=== PATIENT | male | born 1975 | race African-American/Black ===

== ENCOUNTER 2016-09-04 12:05 | Emergency (ER) | payer OTHER ==
[~2016-09-04] VITALS: Ht 182.9 cm; Wt 79.4 kg
[2016-09-04 12:40] VITALS: BP 180/106
[2016-09-04] MEDS ORDERED: AMLODIPINE BESYL5 MG ORAL (12:41)
[2016-09-04] MEDS ORDERED: ATORVASTATIN CA10 MG ORAL (12:41)
[2016-09-04] MEDS ORDERED: DIOVAN80 MG ORAL (12:41)
[2016-09-04 12:45] VITALS: BP 180/106
--- NOTE | 2016-09-04 12:48 | Emergency Room Report ---
History of Present Illness General Chief Complaint: Medication Refill Source: Patient Present Illness HPI The patient is a 40-year-old male with history of hypertension and hypercholesterolemia presenting for medication refill. The patient states he has been out of his anti hypertensive medications and cholesterol medication for 2 weeks. The patient states he recently changed doctors and is waiting for a next appointment. The patient denies any symptoms including nausea, vomiting , fever, chills, headache, dizziness, blurred vision, weakness, palpitations, chest pain, shortness of breath Allergies: Coded Allergies: No Known Allergies (Verified Allergy, Mild, 07/12/07) Patient History Past Medical History: see triage record Pertinent Family History: none Reviewed Nursing Documentation: PMH: Agreed, PSxH: Agreed Nursing Documentation-PMH Hx Hypertension: Yes - high cholesterol Review of Systems All Other Systems: negative except mentioned in HPI Physical Exam Vital Signs Date Time Temp Pulse Resp B/P Pulse Ox O2 Delivery O2 Flow Rate FiO2 09/04/16 12:27 97.9 82 16 180/106 98 Room Air Sp02 EP Interpretation: reviewed, normal General Appearance: no apparent distress, alert, GCS 15, non-toxic Head: normocephalic, atraumatic Eyes: bilateral eye PERRL, bilateral eye normal inspection ENT: hearing grossly normal, normal pharynx, no angioedema, normal voice Neck: full range of motion, supple/symm/no masses Respiratory: chest non-tender, lungs clear, normal breath sounds, no wheezing, speaking full sentences Cardiovascular #1: regular rate, rhythm, no edema, no murmur, no rub Musculoskeletal: back normal, gait/station normal, normal range of motion, non- tender Neurologic: alert, oriented x3, responsive, motor strength/tone normal, sensory intact, normal gait, speech normal Psychiatric: judgement/insight normal, memory normal, mood/affect normal, no suicidal/homicidal ideation Skin: normal color, no rash, warm/dry, well hydrated Lymphatic: no adenopathy Medical Decision Making PA Attestation Dr. Castro is my supervising physician. Patient management was discussed with my supervising physician Diagnostic Impression: Primary Impression: Hypertension Additional Impression: Encounter for medication refill ER Course The patient is a 40-year-old male with history of hypertension and hypercholesterolemia presenting for medication refill. DDx: HTN, hypercholesterolemia PE: Pt is hypertensive No apparent distress. A&Ox4 PERRL. EOMI. Normal mentation. RRR. No MRG Lungs CTA bilat Skin is warm and dry, no rashes. The pt is given refill of these medications and will FU with PMD ADIN. ER precautions given Last Vital Signs Date Time Temp Pulse Resp B/P Pulse Ox O2 Delivery O2 Flow Rate FiO2 09/04/16 12:27 97.9 82 16 180/106 98 Room Air Status: improved Disposition: HOME, SELF-CARE Condition: Improved Scripts Amlodipine Besylate* (AMLODIPINE BESYLATE*) 5 Mg Tablet 5 MG ORAL DAILY, #30 TAB Prov: RAMEZ BEYER.A. 09/04/16 Valsartan (DIOVAN) 80 Mg Tab 80 MG ORAL DAILY, #30 TAB Prov: RAMEZ BEYER P.A. 09/04/16 Atorvastatin Calcium* (LIPITOR*) 10 Mg Tablet 10 MG ORAL BEDTIME, #30 TAB Prov: RAMEZ BEYER P.A. 09/04/16 Patient Instructions: Medicine Refill at the Emergency Department, Hypertension Additional Instructions: I discussed my findings with the patient. All questions and concerns have been answered. Treatment and medication compliance have been addressed. I advised the patient that they need to follow up with PMD in 3-5 days. Return to ED if symptoms worsen, new symptoms arise, or if needed for any reason. Patient verbalized understanding of discharge instructions. RAMEZ BEYER Sep 04, 2016 12:48
== END 2016-09-04 12:45 | disposition home or self-care (01) ==
LOC: EMR 12:30
DX: I10 Essential (primary) hypertension (principal); Z76.0 Encounter for issue of repeat prescription; E78.00 Pure hypercholesterolemia, unspecified
CPT/HCPCS: 99284

== ENCOUNTER 2017-01-04 23:31 | Inpatient (IN) | payer OTHER ==
[~2017-01-04] VITALS: Ht 175.3 cm; Wt 83.9 kg
[~2017-01-04 23:31] MED LIST: AMLODIPINE BESYL5 MG ORAL; ATORVASTATIN CA10 MG ORAL; DIOVAN80 MG ORAL
[2017-01-05] VITALS (12 sets, daily range): BP systolic 121–206; BP diastolic 72–119
[2017-01-05 00:16] LABS: BASOPHILS % (AUTO) 0.7 % (0.0-2.0); EOSINOPHILS % (AUTO) 1.6 % (0.0-3.0); LYMPHOCYTES % (AUTO) 28.9 % (20.0-45.0); MEAN CORPUSCULAR HEMOGLOBIN 33.2 PG (27.0-31.0); MEAN CORPUSCULAR HGB CONC 34.4 G/DL (32.0-36.0); MEAN CORPUSCULAR VOLUME 97 FL (80-99); MEAN PLATELET VOLUME 11.4 FL (6.5-10.1); MONOCYTES % (AUTO) 7.2 % (1.0-10.0); NEUTROPHILS % (AUTO) 61.6 % (45.0-75.0); PLATELET COUNT 184 K/UL (150-450); RED BLOOD COUNT 4.97 M/UL (4.70-6.10); RED CELL DISTRIBUTION WIDTH 11.5 % (11.6-14.8); WHITE BLOOD COUNT 6.3 K/UL (4.8-10.8)
[2017-01-05 00:23] LABS: PROTHROMBIN TIME 10.7 SEC (9.30-11.50)
--- NOTE | 2017-01-05 00:23 | Emergency Room Report ---
History of Present Illness General Chief Complaint: Generalized Weakness Source: Patient Present Illness HPI Is a 41-year-old male with a history of hyperlipidemia and hypertension. He presents with chief complaint of generalized weakness and headache. Onset was about 2 hours ago. He has stopped his blood pressure medication about to 3 days ago because he wanted to go natural. He has some headache. Tonight, about 2 hours ago he went to the bathroom and noticed acute onset of severe headache and left-sided weakness. Said he had hard time walking. His friend has to support him. Has some slurred speech. Speech is improving. No fever or chills. No nausea no vomiting. No focal deficit. Allergies: Coded Allergies: No Known Allergies (Verified Allergy, Mild, 07/12/07) Patient History Past Medical History: see triage record, old chart reviewed, HTN Past Surgical History: other Pertinent Family History: none Social History: Denies: smoking Immunizations: other Reviewed Nursing Documentation: PMH: Agreed, PSxH: Agreed Nursing Documentation-PMH Hx Hypertension: Yes - high cholesterol Review of Systems Eye: Denies: blurred vision, eye pain ENT: Denies: ear pain, nose congestion, throat swelling Respiratory: Denies: cough, shortness of breath Cardiovascular: Denies: chest pain, palpitations Gastrointestinal: Denies: abdominal pain, diarrhea, nausea, vomiting Musculoskeletal: Denies: back pain, joint pain Skin: Denies: rash Neurological: Reports: focal weakness, headache, Denies: numbness Endocrine: Denies: increased thirst, increased urine Hematologic/Lymphatic: Denies: easy bruising All Other Systems: negative except mentioned in HPI Physical Exam Vital Signs Date Time Temp Pulse Resp B/P Pulse Ox O2 Delivery O2 Flow Rate FiO2 01/04/17 23:42 97.9 72 16 187/115 98 Room Air vitals with hypertension Sp02 EP Interpretation: reviewed, normal General Appearance: well appearing, no apparent distress, alert Head: normocephalic, atraumatic Eyes: bilateral eye EOMI, bilateral eye PERRL ENT: hearing grossly normal, normal pharynx Neck: full range of motion, supple, no meningismus Respiratory: chest non-tender, lungs clear, normal breath sounds Cardiovascular #1: regular rate, rhythm, no murmur Gastrointestinal: normal bowel sounds, non tender, no mass, no organomegaly, no bruit, non-distended Musculoskeletal: back normal, normal range of motion Neurologic: alert, oriented x3, other - Mild dysarthria. No facial droop. Minimal weakness to the left upper extremity compared to the right. Mild dysmetria of the left hand Psychiatric: mood/affect normal Skin: warm/dry Medical Decision Making Diagnostic Impression: Primary Impression: Hypertension Qualified Codes: I10 - Essential (primary) hypertension Additional Impression: TIA (transient ischemic attack) Qualified Codes: G45.9 - Transient cerebral ischemic attack, unspecified ER Course Patient presents with symptom concerning for TIA/CVA. Probably had a small lacunar infarct. Symptom improved now. Blood pressure improved. Speech is clear. Deficit almost resolved. Patient received aspirin and blood pressure medication here. I discussed the case with Dr. Anderson who accepted the patient for transfer. Patient was initially to be transferred to [facility]. His insurance company was unable to transfer the patient out within the two-hour period. Patient will be admitted here in the service Dr. Rivera. Laboratory Tests Test 01/04/17 23:59 01/05/17 00:22 White Blood Count 6.3 K/UL (4.8-10.8) Red Blood Count 4.97 M/UL (4.70-6.10) Hemoglobin 16.5 G/DL (14.2-18.0) Hematocrit 48.1 % (42.0-52.0) Mean Corpuscular Volume 97 FL (80-99) Mean Corpuscular Hemoglobin 33.2 PG (27.0-31.0) H Mean Corpuscular Hemoglobin Concent 34.4 G/DL (32.0-36.0) Red Cell Distribution Width 11.5 % (11.6-14.8) L Platelet Count 184 K/UL (150-450) Mean Platelet Volume 11.4 FL (6.5-10.1) H Neutrophils (%) (Auto) 61.6 % (45.0-75.0) Lymphocytes (%) (Auto) 28.9 % (20.0-45.0) Monocytes (%) (Auto) 7.2 % (1.0-10.0) Eosinophils (%) (Auto) 1.6 % (0.0-3.0) Basophils (%) (Auto) 0.7 % (0.0-2.0) Prothrombin Time 10.7 SEC (9.30-11.50) Prothromb Time International Ratio 1.0 (0.9-1.1) Activated Partial Thromboplast Time 29 SEC (23-33) Sodium Level 139 mEQ/L (135-145) Potassium Level 3.5 mEQ/L (3.4-4.9) Chloride Level 102 mEQ/L (98-107) Carbon Dioxide Level 25 mEQ/L (20-30) Anion Gap 12 (5-15) Blood Urea Nitrogen 15 mg/dL (7-23) Creatinine 1.0 mg/dL (0.7-1.2) Estimat Glomerular Filtration Rate > 60 mL/min (>60) Glucose Level 124 mg/dL (74-106) H Calcium Level 9.5 mg/dL (8.6-10.2) Total Bilirubin 0.4 mg/dL (0.0-1.2) Aspartate Amino Transf (AST/SGOT) 23 U/L (5-40) Alanine Aminotransferase (ALT/SGPT) 28 U/L (3-41) Alkaline Phosphatase 109 U/L (40-129) Troponin I < 0.30 ng/mL (<=0.30) Total Protein 8.0 g/dL (6.6-8.7) Albumin 4.8 g/dL (3.5-5.2) Globulin 3.2 g/dL Albumin/Globulin Ratio 1.5 (1.0-2.7) Triglycerides Level 110 mg/dL (< 150) Cholesterol Level 174 mg/dL (< 200) LDL Cholesterol 109 mg/dL (60-99) H HDL Cholesterol 43 mg/dL (> 60) Cholesterol/HDL Ratio 4.0 (3.3-4.4) Urine Color Yellow Urine Appearance Clear Urine pH 8 (4.5-8.0) Urine Specific [place] 1.010 (1.005-1.035) Urine Protein Negative (NEGATIVE) Urine Glucose (UA) Negative (NEGATIVE) Urine Ketones Negative (NEGATIVE) Urine Occult Blood Negative (NEGATIVE) Urine Nitrite Negative (NEGATIVE) Urine Bilirubin Negative (NEGATIVE) Urine Urobilinogen Normal MG/DL (0.0-1.0) Urine Leukocyte Esterase Negative (NEGATIVE) Urine Opiates Screen Negative (NEGATIVE) Urine Barbiturates Screen Negative (NEGATIVE) Phencyclidine (PCP) Screen Negative (NEGATIVE) Urine Amphetamines Screen Negative (NEGATIVE) Urine Benzodiazepines Screen Negative (NEGATIVE) Urine Cocaine Screen Negative (NEGATIVE) Urine Marijuana (THC) Screen Positive (NEGATIVE) H Lab Results Impression labs unremarkable EKG Diagnostic Results EKG Time: 00:22 Rate: normal Rhythm: NSR ST Segments: no acute changes Rhythm Strip Diag. Results Rhythm Strip Time: 00:22 EP Interpretation: yes Rate: 75 Rhythm: NSR, no PVC's, no ectopy Chest X-Ray Diagnostic Results Chest X-Ray Diagnostic Results : Chest X-Ray Ordered: Yes # of Views/Limited/Complete: 1 View Indication: Chest Pain EP Interpretation: Yes Interpretation: no consolidation, no effusion, no pneumothorax, no acute cardiopulmonary disease Impression: No acute disease CT/MRI/US Diagnostic Results CT/MRI/US Diagnostic Results : Imaging Test Ordered: CT head Impression read by radiologist. Negative. Last Vital Signs Date Time Temp Pulse Resp B/P Pulse Ox O2 Delivery O2 Flow Rate FiO2 01/05/17 00:06 97.9 76 16 206/119 98 Room Air Status: improved Disposition: ADMITTED INPATIENT Condition: Serious SHERRI VALENCIA M.D. Jan 05, 2017 00:23
[2017-01-05 00:32] LABS: ALANINE AMINOTRANSFERASE 28 U/L (3-41); ALBUMIN/GLOBULIN RATIO 1.5 (1.0-2.7); ANION GAP 12 (5-15); ASPARTATE AMINO TRANSFERASE 23 U/L (5-40); CALCIUM 9.5 mg/dL (8.6-10.2); CARBON DIOXIDE 25 mEQ/L (20-30); CHLORIDE 102 mEQ/L (98-107); CHOLESTEROL 174 mg/dL (< 200); GLOMERULAR FILTRATION RATE > 60 mL/min (>60); HEMOLYSIS 10; LDL CHOLESTEROL (CALC.) 109 mg/dL (60-99); POTASSIUM 3.5 mEQ/L (3.4-4.9); SODIUM 139 mEQ/L (135-145)
[2017-01-05 00:33] LABS: TROPONIN I < 0.30 ng/mL (<=0.30)
[2017-01-05 00:49] LABS: APPEARANCE,URINE CLEAR; KETONES,URINE NEGATIVE (NEGATIVE); LEUKOCYTE ESTERASE ,URINE NEGATIVE (NEGATIVE); NITRITE,URINE NEGATIVE (NEGATIVE); PH,URINE 8 (4.5-8.0); PROTEIN,URINE NEGATIVE (NEGATIVE); UROBILINOGEN,URINE NORMAL MG/DL (0.0-1.0)
[2017-01-05] MEDS ORDERED: Nitroglycerin Subl 0.4mg tab (Bottle Of 25) SL PRN (07:00)
[2017-01-05] MEDS ORDERED: Mylanta II UD 30ml ORAL PRN (07:00)
[2017-01-05] MEDS ORDERED: DuoNeb 0.5-3(2.5)mg/3ml neb HHN PRN (07:00)
[2017-01-05] MEDS ORDERED: Morphine Sulfate 2mg/ml Inj IVP PRN (07:00)
[2017-01-05] MEDS ORDERED: LORazepam Inj 2mg/ml 1ml IV PRN (07:00)
[2017-01-05] MEDS ORDERED: Miralax 17gm pkt ORAL PRN (07:00)
[2017-01-05] MEDS ORDERED: Promethazine/Codeine 5ml UD ORAL PRN (07:00)
[2017-01-05] MEDS: D5 1/2NS 1,000 ML IV SCH (10:36)
[2017-01-05] MEDS: Heparin 5000 units/ml inj SUBQ SCH ×2 (10:37→21:00)
--- NOTE | 2017-01-05 12:15 | Diagnostic Imaging Report ---
Indication: Chest pain Technique: One view of the chest Comparison: none Findings: Lungs and pleural spaces are clear. Heart size is normal Impression: Negative
--- NOTE | 2017-01-05 12:15 | Diagnostic Imaging Report ---
Indications: Altered metal status Technique: Spiral acquisitions obtained through the brain. Angled axial and coronal 5 x 5 mm slices were reconstructed. Total dose length product 1558 mGycm. CTDI vol(s) 70 mGy. Dose reduction achieved using automated exposure control Comparison: None Findings: No acute hemorrhage or edema. No mass effect nor midline shift. Normal size ventricles and extra axial CSF spaces. Normal beth-white differentiation. Visualized orbits and sinuses are unremarkable. Impression: Negative This agrees with the preliminary interpretation provided overnight by [facility] teleradiology service. The CT scanner at [facility] is accredited by the [employer] and the scans are performed using protocols designed to limit radiation exposure to as low as reasonably achievable to attain images of sufficient resolution adequate for diagnostic evaluation.
--- NOTE | 2017-01-05 13:04 | History and Physical ---
History of Present Illness General Date patient seen: Jan 05, 2017 Reason for Hospitalization: Generalized Weakness Present Illness HPI Is a 41-year-old male with a history of hyperlipidemia and hypertension. He presents with chief complaint of generalized weakness and headache. He has stopped his blood pressure medication about to 3 days. Last night, he went to the bathroom and noticed acute onset of severe headache and left-sided weakness. Has some slurred speech. Speech is improving. No fever or chills. No nausea no vomiting. No focal deficit. He is admitted to telemetry for further w/u. Allergies: Coded Allergies: No Known Allergies (Verified Allergy, Mild, 07/12/07) Medication History Scheduled Amlodipine Besylate* (Amlodipine Besylate*), 5 MG ORAL DAILY Atorvastatin Calcium* (Lipitor*), 10 MG ORAL BEDTIME Valsartan (Diovan), 80 MG ORAL DAILY Patient History Healthcare decision maker Resuscitation status Advanced Directive on File Review of Systems All Other Systems: negative except mentioned in HPI Physical Exam General Appearance: WD/WN, no apparent distress Lines, tubes and drains: peripheral HEENT: normocephalic, atraumatic Neck: non-tender, normal alignment Respiratory/Chest: chest wall non-tender, lungs clear, normal breath sounds Cardiovascular/Chest: normal peripheral pulses, normal rate Abdomen: normal bowel sounds, non tender Genitourinary/Rectal: normal genital exam, normal rectal exam Extremities: normal range of motion, non-tender Last 24 Hour Vital Signs Date Time Temp Pulse Resp B/P Pulse Ox O2 Delivery O2 Flow Rate FiO2 01/05/17 12:00 97.5 68 20 152/99 98 Room Air 01/05/17 08:13 97.3 70 20 146/92 96 Room Air 01/05/17 07:30 97.9 70 16 121/88 98 Room Air 01/05/17 07:11 97.9 70 16 121/88 98 Room Air 01/05/17 05:50 97.9 72 16 123/85 98 Room Air 01/05/17 03:56 97.9 71 16 141/93 98 Room Air 01/05/17 01:48 97.9 83 16 150/92 98 Room Air 01/05/17 01:18 97.9 76 16 146/95 100 Room Air 01/05/17 01:13 164/109 01/05/17 01:00 97.9 76 16 167/108 100 Room Air 01/05/17 00:45 164/117 01/05/17 00:06 97.9 76 16 206/119 98 Room Air 01/04/17 23:42 97.9 72 16 187/115 98 Room Air Intake and Output 01/04/17 01/05/17 19:00 07:00 Intake Total 240 ml Balance 240 ml Intake Oral 240 ml Laboratory Tests Test 01/04/17 23:59 01/05/17 00:22 White Blood Count 6.3 K/UL (4.8-10.8) Red Blood Count 4.97 M/UL (4.70-6.10) Hemoglobin 16.5 G/DL (14.2-18.0) Hematocrit 48.1 % (42.0-52.0) Mean Corpuscular Volume 97 FL (80-99) Mean Corpuscular Hemoglobin 33.2 PG (27.0-31.0) H Mean Corpuscular Hemoglobin Concent 34.4 G/DL (32.0-36.0) Red Cell Distribution Width 11.5 % (11.6-14.8) L Platelet Count 184 K/UL (150-450) Mean Platelet Volume 11.4 FL (6.5-10.1) H Neutrophils (%) (Auto) 61.6 % (45.0-75.0) Lymphocytes (%) (Auto) 28.9 % (20.0-45.0) Monocytes (%) (Auto) 7.2 % (1.0-10.0) Eosinophils (%) (Auto) 1.6 % (0.0-3.0) Basophils (%) (Auto) 0.7 % (0.0-2.0) Prothrombin Time 10.7 SEC (9.30-11.50) Prothromb Time International Ratio 1.0 (0.9-1.1) Activated Partial Thromboplast Time 29 SEC (23-33) Sodium Level 139 mEQ/L (135-145) Potassium Level 3.5 mEQ/L (3.4-4.9) Chloride Level 102 mEQ/L (98-107) Carbon Dioxide Level 25 mEQ/L (20-30) Anion Gap 12 (5-15) Blood Urea Nitrogen 15 mg/dL (7-23) Creatinine 1.0 mg/dL (0.7-1.2) Estimat Glomerular Filtration Rate > 60 mL/min (>60) Glucose Level 124 mg/dL (74-106) H Calcium Level 9.5 mg/dL (8.6-10.2) Total Bilirubin 0.4 mg/dL (0.0-1.2) Aspartate Amino Transf (AST/SGOT) 23 U/L (5-40) Alanine Aminotransferase (ALT/SGPT) 28 U/L (3-41) Alkaline Phosphatase 109 U/L (40-129) Troponin I < 0.30 ng/mL (<=0.30) Total Protein 8.0 g/dL (6.6-8.7) Albumin 4.8 g/dL (3.5-5.2) Globulin 3.2 g/dL Albumin/Globulin Ratio 1.5 (1.0-2.7) Triglycerides Level 110 mg/dL (< 150) Cholesterol Level 174 mg/dL (< 200) LDL Cholesterol 109 mg/dL (60-99) H HDL Cholesterol 43 mg/dL (> 60) Cholesterol/HDL Ratio 4.0 (3.3-4.4) Urine Color Yellow Urine Appearance Clear Urine pH 8 (4.5-8.0) Urine Specific [place] 1.010 (1.005-1.035) Urine Protein Negative (NEGATIVE) Urine Glucose (UA) Negative (NEGATIVE) Urine Ketones Negative (NEGATIVE) Urine Occult Blood Negative (NEGATIVE) Urine Nitrite Negative (NEGATIVE) Urine Bilirubin Negative (NEGATIVE) Urine Urobilinogen Normal MG/DL (0.0-1.0) Urine Leukocyte Esterase Negative (NEGATIVE) Urine Opiates Screen Negative (NEGATIVE) Urine Barbiturates Screen Negative (NEGATIVE) Phencyclidine (PCP) Screen Negative (NEGATIVE) Urine Amphetamines Screen Negative (NEGATIVE) Urine Benzodiazepines Screen Negative (NEGATIVE) Urine Cocaine Screen Negative (NEGATIVE) Urine Marijuana (THC) Screen Positive (NEGATIVE) H Height (Feet): 5 Height (Inches): 9.00 Weight (Pounds): 185 Medications Current Medications Medications (Trade) Dose Ordered Sig/Peg Route PRN Reason Start Time Stop Time Status Last Admin Dose Admin Acetaminophen (Tylenol) 650 mg Q4H PRN ORAL fever 01/05/17 07:00 02/04/17 06:59 Al Hydroxide/Mg Hydroxide (Mylanta II) 30 ml Q6H PRN ORAL dyspepsia 01/05/17 07:00 02/04/17 06:59 Albuterol/ Ipratropium (DuoNeb 0.5-3(2.5)mg/3ml) 3 ml EVERY 4 HOURS PRN HHN Shortness of Breath 01/05/17 07:00 01/10/17 06:59 Aspirin (Ecotrin) 81 mg DAILY ORAL 01/05/17 14:00 02/04/17 13:59 Atorvastatin Calcium (Lipitor) 10 mg BEDTIME ORAL 01/05/17 21:00 02/04/17 20:59 Clonidine HCl (Catapres) 0.1 mg Q4H PRN ORAL For High Blood Pressure 01/05/17 07:00 02/04/17 06:59 Dextrose (Dextrose 50%) STAT PRN IV Hypoglycemia 01/05/17 07:00 02/04/17 06:59 Dextrose/Sodium Chloride (D5 0.45% NS) 1,000 ml @ 50 mls/hr Q20H IV 01/05/17 08:00 02/04/17 07:59 01/05/17 10:36 Heparin Sodium (Porcine) (Heparin 5000 units/ml) 5,000 units EVERY 12 HOURS SUBQ 01/05/17 09:00 02/04/17 08:59 01/05/17 10:37 Lorazepam (Ativan 2mg/ml 1ml) 0.5 mg Q4H PRN IV For Anxiety 01/05/17 07:00 01/12/17 06:59 Morphine Sulfate (Morphine Sulfate) 1 mg EVERY 4 HOURS PRN IVP For Pain 7-01/05/17 07:00 01/12/17 06:59 Nitroglycerin (Ntg) 0.4 mg Q5M X 3 DOSES PRN SL Prn Chest Pain 01/05/17 07:00 02/04/17 06:59 Ondansetron HCl (Zofran) 4 mg Q6H PRN IVP Nausea & Vomiting 01/05/17 07:00 02/04/17 06:59 Polyethylene Glycol (Miralax) 17 gm HSPRN PRN ORAL Constipation 01/05/17 07:00 02/04/17 06:59 Promethazine HCl/ Codeine (Phenergan with Codeine) 5 ml Q4H PRN ORAL For Cough 01/05/17 07:00 02/04/17 06:59 Temazepam (Restoril) 15 mg HSPRN PRN ORAL Insomnia 01/05/17 07:00 01/12/17 06:59 Assessment/Plan Problem List: (1) Cerebrovascular accident (CVA) ICD Codes: I63.9 - Cerebral infarction, unspecified SNOMED: 146239461 (2) Non-compliance ICD Codes: Z91.19 - Patient's noncompliance with other medical treatment and regimen SNOMED: 7002033 (3) TIA (transient ischemic attack) ICD Codes: G45.9 - Transient cerebral ischemic attack, unspecified SNOMED: 247658761, 918635382 Qualifiers: Qualified Codes: G45.9 - Transient cerebral ischemic attack, unspecified (4) Uncontrolled hypertension ICD Codes: I10 - Essential (primary) hypertension SNOMED: 80741537 Assessment/Plan MRI of brain monitor BP and treat ph ot ,swallow study neuro evaluation JADE KING Jan 05, 2017 13:04
[2017-01-05] MEDS: Aspirin EC 81mg tab ORAL SCH (14:33)
--- NOTE | 2017-01-05 20:16 | Consultation ---
DATE OF CONSULTATION: 01/05/2017 NEUROLOGICAL CONSULTATION CONSULTING PHYSICIAN: Memo Perez M.D. REQUESTING PHYSICIAN: Davina Rivera M.D. HISTORY OF PRESENT ILLNESS: This is a 41-year-old gentleman seen in neurological consultation to evaluate an acute stroke. The patient informed me that approximately five months ago, he was diagnosed with elevated blood pressure, it was around 140 systolic. He suspect that he had a previous episodes of elevated blood pressure due to intermittent headaches and dizziness for the last year. Recently, the dose of treatment was increased, but he developed swelling in his both feet, so he reduced the dose of medicine to half and in the last couple of days, he stopped taking any medications given that he improved his diet vegetarian only. Last night, he went to a hot bath, while in the bath he got asleep. Upon awakening, he felt that he is really unable to get out of the bath. He drained the water and slowly managed to get out of the bath being very ataxic falling to the left side. Later, he developed sharp pains in the left side of the yazidi with a hot sensation in the left face and blurriness of left eye. Blood pressure was elevated to 190. At that time, a friend of his brought him to the emergency room. The patient reported that he has hypertension, hyperlipidemia, and complaining of generalized weakness and headaches. He had a hard time to walk due to unsteadiness. Speech was somewhat slurry. At the time of examination, his speech actually was already improving. Blood pressure on admission 187/115, heart rate of 72, and temperature 97.9 degrees. His initial workup included carotid duplex studies and CT of the brain, both reported as negative. Lab work included normal CBC studies, normal coagulation panel, and normal urinalysis. Chemistry panel with LDL of 109, blood sugar 124, otherwise stable. Toxicology panel positive for marijuana only. Following admission to present, there was minor improvement, still has lightheadedness and clumsiness on the left. His vital signs improved and currently blood pressure 152/99 and temperature 97.5 degrees. PAST MEDICAL HISTORY: The patient has a history of hypertension and hyperlipidemia only. He has no other major medical problems. MEDICATIONS: He is on Lipitor, Diovan, and amlodipine. ALLERGIES: None reported. SOCIAL HISTORY: Lives alone. 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 No alcohol, no drug abuse, smokes marijuana. FAMILY HISTORY: Noncontributory. REVIEW OF SYSTEMS: Intermittent dizziness and headaches, but no chest pain or palpitations. Denies respiratory problems. Denies abdominal pain or discomfort. No urine or bowel incontinence. PHYSICAL EXAMINATION: GENERAL: A well-developed, well-nourished, pleasant man, not in acute distress, lying comfortably in bed. VITAL SIGNS: Blood pressure 148/90 and respirations 18. HEENT: Head, normocephalic. No evidence of trauma. Eyes, ears, and throat are clear. NECK: Supple. No meningeal signs. MUSCULOSKELETAL EXAMINATION: Unremarkable. There is no deformities. Peripheral pulses 1+ symmetric. MENTAL STATUS: Alert and oriented x3. Speech is fluent. Language intact. No aphasia. Cognitive function normal. CRANIAL NERVE II: Pupils both responding to light and accommodation. Extraocular movement intact. Visual georges are full. CRANIAL NERVE V: Normal corneal responses. CRANIAL NERVE VII: Minor facial asymmetry with drooping on the left. CRANIAL NERVES IX THROUGH XII: Tongue is in midline. Symmetric palate elevation. MOTOR EXAMINATION: Normal muscle tone and strength 5/5 in all extremities except minor pronation in the left arm. Deep tendon reflexes 1+ bilaterally symmetric. SENSORY EXAMINATION: Normal to pinprick and light touch. COORDINATION: Normal [id number] and [id number] testing. Minor pointing on the left side. The patient was able to sit up and stand up, but positive Romberg test, attempt to walk, he was falling to the left. IMPRESSION: 1. This is a 41-year-old man with a poorly controlled hypertension and hyperlipidemia, now presenting with hypertensive encephalopathy with signs suggestive of cerebellar stroke. 2. Hypertension. 3. Hyperlipidemia. 4. Noncompliance. RECOMMENDATION: 1. Stat MRI of the brain and MR angiogram of the brain without contrast. 2. Recheck 2D echocardiogram and carotid duplex. 3. Laboratory work to include lipid panel, AGUSTO, sedimentation rate, B12, folate, and human immunodeficiency virus studies. 4. The patient to maintain bedrest. 5. Get PT, OT, and speech therapy. Meanwhile, continue with aspirin 81 mg and Lipitor 10 mg daily. 6. We will reassess in the morning. Thank you for allowing me to see this interesting patient in neurological consultation. Memo Joe Perez DR: HOA JOB#: [id number] CC:
[2017-01-06 00:17] VITALS: BP 144/80
[2017-01-06] MEDS: D5 1/2NS 1,000 ML IV SCH (00:30)
[2017-01-06 04:22] VITALS: BP 154/106
[2017-01-06 08:00] VITALS: BP 136/98
[2017-01-06 08:15] LABS: BASOPHILS % (AUTO) 0.7 % (0.0-2.0); EOSINOPHILS % (AUTO) 1.2 % (0.0-3.0); LYMPHOCYTES % (AUTO) 30.8 % (20.0-45.0); MEAN CORPUSCULAR HEMOGLOBIN 33.4 PG (27.0-31.0); MEAN CORPUSCULAR HGB CONC 34.3 G/DL (32.0-36.0); MEAN CORPUSCULAR VOLUME 97 FL (80-99); MEAN PLATELET VOLUME 11.1 FL (6.5-10.1); MONOCYTES % (AUTO) 5.3 % (1.0-10.0); PLATELET COUNT 188 K/UL (150-450); RED BLOOD COUNT 4.83 M/UL (4.70-6.10); RED CELL DISTRIBUTION WIDTH 11.6 % (11.6-14.8); WHITE BLOOD COUNT 6.7 K/UL (4.8-10.8)
[2017-01-06 08:25] LABS: ALANINE AMINOTRANSFERASE 23 U/L (3-41); ALBUMIN/GLOBULIN RATIO 1.4 (1.0-2.7); ANION GAP 10 (5-15); ASPARTATE AMINO TRANSFERASE 17 U/L (5-40); CALCIUM 9.2 mg/dL (8.6-10.2); CARBON DIOXIDE 23 mEQ/L (20-30); CHLORIDE 103 mEQ/L (98-107); CHOLESTEROL 146 mg/dL (< 200); CHOLESTEROL/HDL RATIO 3.8 (3.3-4.4); GLOMERULAR FILTRATION RATE > 60 mL/min (>60); HEMOLYSIS 9; LDL CHOLESTEROL (CALC.) 84 mg/dL (60-99); POTASSIUM 3.8 mEQ/L (3.4-4.9); SODIUM 136 mEQ/L (135-145); TOTAL PROTEIN 7.2 g/dL (6.6-8.7)
[2017-01-06 08:45] LABS: PROTHROMBIN TIME 10.9 SEC (9.30-11.50)
[2017-01-06] MEDS: Aspirin EC 81mg tab ORAL SCH (08:52)
[2017-01-06] MEDS: Heparin 5000 units/ml inj SUBQ SCH (08:55)
--- NOTE | 2017-01-06 09:43 | Diagnostic Imaging Report ---
Indication: Altered metal status Technique: sagittal T1 fast spin echo, axial T1 FLAIR, axial T2 FLAIR, axial T2 FS PROPELLER, axial T2* GRE, axial diffusion weighted images. ADC and exponential ADC maps generated Comparison: Brain CT 01/04/2017 Findings: No abnormal areas of restricted diffusion to suggest acute infarction. No acute hemorrhage or edema. Small punctate focus of susceptibility artifact is seen in the left caudate head there is suggestion of a small old lacunar infarct in the posterior right basal ganglia on the axial T1-weighted images, not confirmed on other sequences. No mass effect nor midline shift. Normal size ventricles and extra axial CSF spaces. Visualized orbits and sinuses are unremarkable. The vascular flow voids are preserved. Impression: Negative for acute intracranial bleed, mass effect, or infarct Punctate focus of susceptibility artifact in the left caudate head, consistent with old micro-bleed Suspect old right basal ganglia lacunar infarct
--- NOTE | 2017-01-06 10:12 | Diagnostic Imaging Report ---
Indications: Altered mental status and general weakness Technique: 3D [id number] images obtained through the redding of [place]. MIP reconstructions were generated in multiple rotational projections Comparison: None Findings: Exam is somewhat limited, as or signal is demonstrated multiple vessels; suspect artifactual. Tortuous codominant bilateral vertebral arteries. Patent nonstenotic basilar artery. Possible stenosis of the left P1 segment, versus artifact. Possible stenosis of the right P1 segment, versus artifact. There may be a left posterior communicating artery. Distal internal carotid arteries are patent, nonstenotic. Bilateral M1 segments and proximal branches are patent, without significant stenosis. Small caliber patent and probably nonstenotic bilateral A1 segments and proximal anterior cerebral arteries. No evidence of aneurysm or vascular malformation. Impression: Somewhat limited exam due to poor signal quality intracerebral vessels. In particular, stenoses of the bilateral P1 segments cannot be ruled out. Consider contrast CT angiography if there is high clinical suspicion for significance or vascular disease No other findings to suggest significant intracranial cerebrovascular insufficiency
[2017-01-06 12:00] VITALS: BP 139/103
--- NOTE | 2017-01-06 12:26 | Diagnostic Imaging Report ---
APPROVED REPORT CPT Code: 62688 Present Symptoms Comments: Hx of CVA Right Leg numbness BILATERAL: Imaging reveals a patent deep venous system bilaterally. There is no evidence of thrombus within the femoral, popliteal or tibial segments. The greater saphenous veins are also within normal limits. Doppler indicates normal spontaneous flow within these segments.
--- NOTE | 2017-01-06 12:27 | Diagnostic Imaging Report ---
APPROVED REPORT CPT Code: 22082 Vascular Symptoms CVA/TIA: CAROTID (BILATERAL) - Imaging reveals no significant plaque within the right and left extracranial carotid arteries. The Doppler spectral flow analysis is within normal limits throughout the extracranial carotid arteries bilaterally. VERTEBRAL- The vertebral arteries are within normal limits.
--- NOTE | 2017-01-06 13:10 | Neurology Progress Note ---
Interim History Interim History ROS Limited/Unobtainable: No Complaints: generalised ache, weakness, gait ataxia Events: no change Objective Physical Exam Last Vital Signs Date Time Temp Pulse Resp B/P Pulse Ox O2 Delivery O2 Flow Rate FiO2 01/06/17 12:00 97.8 72 18 139/103 98 Room Air Laboratory Tests Test 01/06/17 07:30 01/06/17 09:15 White Blood Count 6.7 K/UL (4.8-10.8) Red Blood Count 4.83 M/UL (4.70-6.10) Hemoglobin 16.1 G/DL (14.2-18.0) Hematocrit 47.0 % (42.0-52.0) Mean Corpuscular Volume 97 FL (80-99) Mean Corpuscular Hemoglobin 33.4 PG (27.0-31.0) H Mean Corpuscular Hemoglobin Concent 34.3 G/DL (32.0-36.0) Red Cell Distribution Width 11.6 % (11.6-14.8) Platelet Count 188 K/UL (150-450) Mean Platelet Volume 11.1 FL (6.5-10.1) H Neutrophils (%) (Auto) 62.0 % (45.0-75.0) Lymphocytes (%) (Auto) 30.8 % (20.0-45.0) Monocytes (%) (Auto) 5.3 % (1.0-10.0) Eosinophils (%) (Auto) 1.2 % (0.0-3.0) Basophils (%) (Auto) 0.7 % (0.0-2.0) Prothrombin Time 10.9 SEC (9.30-11.50) Prothromb Time International Ratio 1.0 (0.9-1.1) Activated Partial Thromboplast Time 30 SEC (23-33) Sodium Level 136 mEQ/L (135-145) Potassium Level 3.8 mEQ/L (3.4-4.9) Chloride Level 103 mEQ/L (98-107) Carbon Dioxide Level 23 mEQ/L (20-30) Anion Gap 10 (5-15) Blood Urea Nitrogen 11 mg/dL (7-23) Creatinine 1.0 mg/dL (0.7-1.2) Estimat Glomerular Filtration Rate > 60 mL/min (>60) Glucose Level 130 mg/dL (74-106) H Calcium Level 9.2 mg/dL (8.6-10.2) Total Bilirubin 0.5 mg/dL (0.0-1.2) Aspartate Amino Transf (AST/SGOT) 17 U/L (5-40) Alanine Aminotransferase (ALT/SGPT) 23 U/L (3-41) Alkaline Phosphatase 91 U/L (40-129) Total Protein 7.2 g/dL (6.6-8.7) Albumin 4.3 g/dL (3.5-5.2) Globulin 2.9 g/dL Albumin/Globulin Ratio 1.4 (1.0-2.7) Triglycerides Level 119 mg/dL (< 150) Cholesterol Level 146 mg/dL (< 200) LDL Cholesterol 84 mg/dL (60-99) HDL Cholesterol 38 mg/dL (> 60) Cholesterol/HDL Ratio 3.8 (3.3-4.4) Thyroid Stimulating Hormone (TSH) 1.510 uIU/mL (0.300-4.500) Ammonia 47 umol/L (16-60) General: well developed, well nourished, no acute distress Head: normocophalic, atraumatic Neck: no rigidity Neurologic Exam Mental Status: awake, alert, oriented x4, normal cognition, good mathematical skills, normal recent memory, normal remote memory, preserved visuospatial function Speech: normal speech, no dysarthia Language: normal language, no aphasia Cranial Nerve II: fundus normal, visual georges, no papilledema Cranial Nerves III, IV, : PERRLA, EOMI, pupils Cranial Nerve V: normal facial sensations, temporales function normal, masseters function normal, pterygoids function normal Cranial Nerve VII: no facial asymmetry, normal facial expressions Cranial Nerve VIII: normal hearing, no nystagmus Cranial Nerve IX: normal palate elevation, gag response Cranial Nerve X: no voice hoarseness Cranial Nerve XI: SCM symmetric, trapezii function normal Cranial Nerve XII: tongue midline, no tongue atrophy/fasciculations Motor System: normal muscle tone, strength 5/5, no involuntary movement, no muscle wasting Sensory: normal pinprick Coordination: normal finger to nose bilaterally Deep Tendon Reflexes: 1+ ankle (L), 1+ ankle (R), 1+ bicep (L), 1+ bicep (R), 1 + brachioradialis (L), 1+ brachioradialis (R), 1+ knee (L), 1+ knee (R), 1+ tricep (L), 1+ tricep (R) Reflexes: flexor plantar (L), flexor plantar (R) Stance: other - unstable Gait: other - ataxia Impression/Recommendations Problems: (1) Hypertensive encephalopathy syndrome (2) multiple lacunar strokes, old (3) gait ataxia Status: unchanged Recommendations pt/ot htn control d/w attending EL RIVERO Jan 06, 2017 13:10
[2017-01-06] MEDS ORDERED: ASPIRIN EC81 MG ORAL (14:40)
[2017-01-06 16:26] VITALS: BP 160/111
[2017-01-06 17:05] VITALS: BP 151/109
--- NOTE | 2017-01-06 19:23 | Pulmonology Progress Note ---
Assessment/Plan Problems: (1) Cerebrovascular accident (CVA) (2) Non-compliance (3) TIA (transient ischemic attack) (4) Uncontrolled hypertension Assessment/Plan bp better need pt ot wants to go to home with HH. Subjective ROS Limited/Unobtainable: No Constitutional: Reports: no symptoms HEENT: Repors: no symptoms Respiratory: Reports: no symptoms Allergies: Coded Allergies: No Known Allergies (Verified Allergy, Mild, 07/12/07) Objective Last 24 Hour Vital Signs Date Time Temp Pulse Resp B/P Pulse Ox O2 Delivery O2 Flow Rate FiO2 01/06/17 17:05 18 151/109 01/06/17 16:30 160/111 01/06/17 16:26 67 18 160/111 98 Room Air 01/06/17 12:16 75 01/06/17 12:00 97.8 72 18 139/103 98 Room Air 01/06/17 08:00 98.2 72 18 136/98 97 Room Air 01/06/17 07:38 80 01/06/17 07:17 72 16 Room Air 01/06/17 05:43 65 01/06/17 04:22 97.7 62 20 154/106 97 Room Air 01/06/17 00:17 98.0 96 20 144/80 96 Room Air 01/05/17 20:19 98.4 75 20 146/86 97 Room Air 01/05/17 20:00 80 Intake and Output 01/05/17 01/06/17 19:00 07:00 Intake Total 900 ml Balance 900 ml Intake Oral 500 ml IV Total 400 ml # Voids 4 General Appearance: WD/WN HEENT: normocephalic, atraumatic Respiratory/Chest: chest wall non-tender, lungs clear Cardiovascular: normal peripheral pulses, normal rate Abdomen: normal bowel sounds, soft, non tender Genitourinary: normal external genitalia Extremities: no cyanosis Laboratory Tests 01/06/17 07:30: White Blood Count 6.7, Red Blood Count 4.83, Hemoglobin 16.1, Hematocrit 47.0, Mean Corpuscular Volume 97, Mean Corpuscular Hemoglobin 33.4H, Mean Corpuscular Hemoglobin Concent 34.3, Red Cell Distribution Width 11.6, Platelet Count 188, Mean Platelet Volume 11.1H, Neutrophils (%) (Auto) 62.0, Lymphocytes (%) (Auto) 30.8, Monocytes (%) (Auto) 5.3, Eosinophils (%) (Auto) 1.2, Basophils (%) (Auto ) 0.7, Prothrombin Time 10.9, Prothromb Time International Ratio 1.0, Activated Partial Thromboplast Time 30, Sodium Level 136, Potassium Level 3.8, Chloride Level 103, Carbon Dioxide Level 23, Anion Gap 10, Blood Urea Nitrogen 11, Creatinine 1.0, Estimat Glomerular Filtration Rate > 60, Glucose Level 130H, Calcium Level 9.2, Total Bilirubin 0.5, Aspartate Amino Transf (AST/SGOT) 17, Alanine Aminotransferase (ALT/SGPT) 23, Alkaline Phosphatase 91, Total Protein 7.2, Albumin 4.3, Globulin 2.9, Albumin/Globulin Ratio 1.4, Triglycerides Level 119, Cholesterol Level 146, LDL Cholesterol 84, HDL Cholesterol 38, Cholesterol/ HDL Ratio 3.8, Thyroid Stimulating Hormone (TSH) 1.510 01/06/17 09:15: Ammonia 47 JADE KING Jan 06, 2017 19:22
--- NOTE | 2017-01-07 07:51 | Cardiology Report ---
APPROVED REPORT EXAM: Two-dimensional and M-mode echocardiogram with Doppler and color Doppler. INDICATION LV function M-Mode DIMENSIONS Left Atrium (MM)4.1 (1.6-4.0cm) Aortic Root3.4 (2.0-3.7cm) Aortic Cusp Exc.1.9 (1.5-2.0cm) Other Information Technically limited study due to poor acoustical windows. Normal left ventricular chamber size, systolic function and wall motion to extent visualized. Left ventricular ejection fraction estimated to be 60-65 %. Study quality precludes accurate assessment of regional wall motion. Concentric left ventricular hypertrophy. Small posterior pericardial effusion. All other cardiac chamber sizes are within normal limits. Mild focal aortic valve sclerosis with adequate cusp excursion. Mildly thickened mitral valve leaflets with normal excursion. Mitral annulus and aortic root calcification. Pulmonic valve not well visualized. Normal tricuspid valve structure. IVC at normal size with physiologic collapse. A color flow and spectral Doppler study was performed and revealed: No mitral regurgitation. Mitral inflow indicates normal left ventricular diastolic function. Trace tricuspid regurgitation. Tricuspid systolic velocities suggests peak right ventricular systolic pressure of 24 mmHg.
--- NOTE | 2017-01-07 08:48 | Cardiology Report ---
APPROVED REPORT EKG Measurement Heart [id number] Normal sinus rhythm Minimal voltage criteria for LVH, may be normal variant Borderline ECG
--- NOTE | 2017-01-08 13:08 | Discharge Summary ---
Discharge Summary Hospital Course Date of Admission Jan 05, 2017 at 03:00 Date of Discharge Jan 06, 2017 at 18:20 Admitting Diagnosis Transient ischemic attack,cerbralvascular accident HPI Brandan Poole is a 41 year old male who was admitted on Jan 05, 2017 at 03:00 for Transient Ischemic Attack,Cerebralvascular Acciden Hospital Course [id number] Discharge Discharge Disposition Patient was discharged to Home with Home Health(06) Discharge Diagnoses: Hanna Scales NP Jan 08, 2017 13:08
--- NOTE | 2017-01-09 11:16 | Discharge Summary 2 SIG ---
DATE OF ADMISSION: 01/05/2017 DATE OF DISCHARGE: 01/06/2017 FLOOR SURFACER: Memo Perez M.D. BRIEF HOSPITAL COURSE: The patient is a 41-year-old male with history of hyperlipidemia and hypertension presented to ED complaining of generalized weakness and headache. He apparently stopped taking his blood pressure medications for three days. The night prior he went to the bathroom and noticed acute onset of severe headache and left-sided weakness with some slurring of speech. He presented to ED. On evaluation symptoms had improved. Initial blood pressure was 187/115. He was given aspirin and hydralazine IV. Troponin was negative. Urine toxicology was negative. He had a chest x-ray done that showed no consolidation, effusion or pneumothorax. EKG was in normal sinus rhythm with no acute changes. CT of the head done was negative. He was not given tPA because his symptoms were resolving and were mild. Blood pressure was likewise elevated. He was initially planned to be transferred to contracted facility. However, unable to be transferred as the patient was out of the 2-hour stephen period. He was then admitted to telemetry under the care of Dr. Rivera. He underwent neurologic consult with Dr. Perez. He was continued on aspirin and Lipitor 10 mg daily. He was given physical and occupational and speech therapy. Venous duplex of lower extremity was negative for DVT. Echocardiogram done showed ejection fraction of 60% to 65%. Carotid showed no significant plaque. Brain MRI with head and neck MRA was negative for acute intracranial bleed, mass effect, or infarct with old right basal ganglia lacunar infarct. He was eventually discharged home with home health. FINAL DIAGNOSES: 1. Acute hypertensive encephalopathy syndrome. 2. Multiple lacunar strokes, old. 3. Gait instability. 4. Transient ischemic attack. 5. Noncompliance. Davina Rivera M.D. I have been assigned to dictate discharge summary on this account and I was not involved in the patient's management. Hanna Scales N.P. DR: TORSTEN JOB#: [id number] CC: ZIA
== END 2017-01-06 18:20 | disposition home health service (06) | DRG 47 ==
LOC: EMR 01-05 00:10 → 2E 01-05 03:00 → EDBEDREQ 01-05 05:10 → 2E 01-05 09:22
DX: G45.9 Transient cerebral ischemic attack, unspecified (principal); I67.4 Hypertensive encephalopathy; Z86.73 Personal history of transient ischemic attack (TIA), and cerebral infarction without residual deficits; E78.5 Hyperlipidemia, unspecified; Z91.19 Patient's noncompliance with other medical treatment and regimen; R26.0 Ataxic gait
CPT/HCPCS: 36415; 70450; 70544; 70551; 71010; 80053; 80061; 80300; 81003; 82140; 82607; 84311; 84443; 84484; 85025; 85610; 85730; 93005; 93306; 93880; 93970; 94664

== ENCOUNTER 2017-08-08 12:08 | Emergency (ER) | payer OTHER ==
[~2017-08-08] VITALS: Ht 175.3 cm; Wt 88.0 kg
[~2017-08-08 12:08] MED LIST changes: +ASPIRIN EC81 MG ORAL
[2017-08-08] MEDS ORDERED: TRUVADA 200 MG1 EAC1 ORAL (12:31)
--- NOTE | 2017-08-08 12:47 | Emergency Room Report ---
History of Present Illness General Chief Complaint: Flu Like Symptoms Present Illness HPI 41-year-old male presents to emergency department complaining of 6/10 in severity generalized body-aches, cough, nasal congestion, sore throat with increased phlegm, and dizziness x1 week. Patient states he did not have his flu vaccination and he believes he may have gotten the flu. Patient reports history of hypertension and CVA. Patient does describe some intermittent headaches over the course of one week but states they are not prominent compared to his other symptoms. He denies nausea or vomiting. He denies weakness. Pt. describes his dizziness as intermittent when he gets up too quickly. pt. denies vertigo. he reports dizziness lasts less than 1 minute. Denies CP, Palpitations, LOC, AMS, Changes in Vision, Sensation, paresthesias, or a sudden severe headache. Pt. is inquiring about a "z-pack". Allergies: Coded Allergies: No Known Allergies (Verified Allergy, Mild, 07/12/07) Patient History Past Medical History: see triage record Past Surgical History: none Pertinent Family History: none Reviewed Nursing Documentation: PMH: Agreed, PSxH: Agreed Nursing Documentation-PMH Hx Hypertension: Yes Hx Neurological Problems: Yes Hx Cerebrovascular Accident: Yes Hx Transient Ischemic Attacks: Yes Hx Numbness: Yes Review of Systems All Other Systems: negative except mentioned in HPI Physical Exam Vital Signs Date Time Temp Pulse Resp B/P (MAP) Pulse Ox O2 Delivery O2 Flow Rate FiO2 08/08/17 12:21 97.2 83 18 105/68 96 Room Air 97.2 Sp02 EP Interpretation: reviewed, normal General Appearance: no apparent distress, alert, GCS 15, non-toxic Head: normocephalic, atraumatic Eyes: bilateral eye normal inspection, bilateral eye PERRL, bilateral eye other - no photophobia ENT: hearing grossly normal, normal voice, TMs + canals normal, uvula midline, nasal congestion, pharyngeal erythema Neck: full range of motion, no meningismus, no bony tend Respiratory: chest non-tender, lungs clear, normal breath sounds, speaking full sentences Cardiovascular #1: regular rate, rhythm, no edema Musculoskeletal: back normal, gait/station normal, normal range of motion, non- tender Neurologic: alert, oriented x3, responsive, motor strength/tone normal, sensory intact, normal gait, speech normal, other - equal board winder strength, no facial droop, negative dennis's, grossly normal Psychiatric: judgement/insight normal Skin: normal color, no rash, warm/dry, well hydrated Medical Decision Making PA Attestation Dr. Bobo is my supervising Physician whom patient management has been discussed with. Diagnostic Impression: Primary Impression: Upper respiratory infection Qualified Codes: J06.9 - Acute upper respiratory infection, unspecified Additional Impression: Orthostatic lightheadedness ER Course 41-year-old male presents to emergency department complaining of 6/10 in severity generalized body-aches, cough, nasal congestion, sore throat with increased phlegm, and dizziness x1 week. Patient states he did not have his flu vaccination and he believes he may have gotten the flu. Patient reports history of hypertension and CVA. Patient does describe some intermittent headaches over the course of one week but states they are not prominent compared to his other symptoms. He denies nausea or vomiting. He denies weakness. Pt. describes his dizziness as intermittent when he gets up too quickly. pt. denies vertigo. he reports dizziness lasts less than 1 minute. Denies CP, Palpitations, LOC, AMS, Changes in Vision, Sensation, paresthesias, or a sudden severe headache. Pt. is inquiring about a "z-pack". Ddx considered but are not limited to URI, pneumonia, PE, strep pharyngitis, meningitis. Vital signs: Pt. is afebrile, the remaining VS are WNL H&PE are most consistent with URI- no meningeal signs, oropharynx is not involved, no evidence of bacterial infection at this time. ORDERS: -Ortho-Static VS: Laying BP 110/74 HR 75 bpm, Standing: BP 105/69 HR 94 bpm, = Positive HR increased 19bpm's ( almost 20) and pt. is symptomatic. ED INTERVENTIONS: -1 Liter NS IV - D/w pt. that he needs to keep a log of his BP measurements, and schedule follow up with is PMD. if light-headedness persists once URI symptoms have resolved, his symptoms may require adjustment of his HTN medications. --PT. EDUCATION: Discussed antibiotic resistance with inappropriate prescribing of antibiotics for viral illnesses. Discussed signs and symptoms to indicate viral illness versus bacterial illness. DISCHARGE: At this time pt. is stable for d/c to home. Will provide printed patient care instructions, and any necessary prescriptions. Care plan and follow up instructions have been discussed with the patient prior to discharge. Last Vital Signs Date Time Temp Pulse Resp B/P (MAP) Pulse Ox O2 Delivery O2 Flow Rate FiO2 08/08/17 12:21 97.2 83 18 105/68 96 Room Air 97.2 Disposition: HOME, SELF-CARE Condition: Stable Scripts Acetaminophen* (TYLENOL EXTRA STRENGTH*) 500 Mg Tablet 500 MG ORAL Q6H Y for Mild Pain/Temp > 100.5, #20 TAB 0 Refills Prov: Baylee Nicolas 08/08/17 Loratadine/Pseudoephedrine (CLARITIN-D 12 HOUR TABLET) 1 Each Tab.er.12h 1 TAB ORAL EVERY 12 HOURS for 5 Days, #10 TAB Prov: Baylee Nicolas 08/08/17 Guaifenesin (Guaifenesin) 1,200 Mg Tab.er.12h 1200 MG PO DAILY, #20 TAB Prov: Baylee Nicolas 08/08/17 Codeine/Promethazine Hcl* (PROMETHAZINE-CODEINE SYRUP*) 118 Ml Syrup 5 ML ORAL Q6H Y for For Cough, #120 ML 0 Refills Prov: Baylee Nicolas 08/08/17 Patient Instructions: Orthostatic Hypotension, Upper Respiratory Infection, Adult, [id number] Additional Instructions: Take medications as directed. Follow up with a Primary Care Provider in 3-5 days, even if your symptoms have resolved. --Please review list of primary care clinics, if you do not already have a primary care provider Return sooner to ED if new symptoms occur, or current symptoms become worse. Do not drink alcohol, drive, or operate heavy machinery while taking Cough Syrup as this may cause drowsiness. - Please note that this Emergency Department Report was dictated using [employer] helper technology software, occasionally this can lead to erroneous entry secondary to interpretation by the dictation equipment. Baylee Nicolas Aug 08, 2017 12:47
[2017-08-08] MEDS ORDERED: PROMETHAZINE-C118 M1 ORAL (13:22)
[2017-08-08] MEDS ORDERED: TYLENOL EXTRA500 MG ORAL (13:22)
[2017-08-08] MEDS ORDERED: CLARITIN-D 121 EAC1 ORAL (13:22)
[2017-08-08] MEDS ORDERED: GUAIFENESIN1200 MG PO (13:22)
[2017-08-08 14:07] VITALS: BP_SYST 105; BP_SYST 107; BP_SYST 110; BP_DIAS 69; BP_DIAS 72; BP_DIAS 74
[2017-08-08 15:01] VITALS: BP 108/75
[2017-08-08 15:02] VITALS: BP 108/75
== END 2017-08-08 15:04 | disposition home or self-care (01) ==
LOC: EMR 13:00
DX: J06.9 Acute upper respiratory infection, unspecified (principal); R42 Dizziness and giddiness; I10 Essential (primary) hypertension; Z86.73 Personal history of transient ischemic attack (TIA), and cerebral infarction without residual deficits
CPT/HCPCS: 96361; 96374; 99284